=== PATIENT | male | born 1950 | race Caucasian/White ===

== ENCOUNTER → 2016-11-30 | Outpatient (CLI) | payer OTHER | LOC: BRMIMAGING 16:10 | PROVIDERS: ATTEND Physician Assistant Medical | DX: K76.9 Liver disease, unspecified (principal) | CPT/HCPCS: 76705-PO ==

== ENCOUNTER → 2016-12-02 | Outpatient (CLI) | payer OTHER ==
[~2016-12-02] MED LIST: GADOBUTROL 10 ML VIAL IVP ONE
[2016-12-02 10:25] LABS: CREATININE 0.8 mg/dL (0.7-1.3); GLOMERULAR FILTRATION RATE > 60
== END ==
LOC: FIMAGING 09:30
PROVIDERS: ATTEND Specialist
DX: N28.89 Other specified disorders of kidney and ureter (principal)
CPT/HCPCS: 74183; A9585

== ENCOUNTER 2017-08-26 06:18 | Emergency (ER) | payer OTHER ==
[2017-08-26] MEDS ORDERED: ACETAMINOPHEN 500 MG TAB ONE (06:48)
[2017-08-26] MEDS ORDERED: ACETAMINOPHEN 500 MG TAB PO ONE (06:48)
--- NOTE | 2017-08-26 06:49 | EDPHY ---
H & P Smoking Status: Never smoked <Cathy Vicente - Last Filed: 08/26/17 06:50> <Altagracia Steward - Last Filed: 08/26/17 07:34> Time Seen by Provider: 08/26/17 06:46 HPI/ROS: CC: cough, fever HPI: This 66-year-old male with no significant past medical history except depression and reflux presents to emergency department today with complaints of a cough and a fever that started approximately 4 - 5 days ago while he was on vacation in [place]. He states he was around a lot of sick people and thinks he has the flu. His cough is productive, he has a headache and left ear pain. He feels mildly short of breath. He denies chest pain, nausea, vomiting, sore throat, abdominal pain, or dysuria, diarrhea. He denies leg pain or swelling. REVIEW OF SYSTEMS: Constitutional: No chills. Eyes: No discharge. ENT: No sore throat. Respiratory: See HPI Cardiac: No chest pain, no palpitations. Gastrointestinal: No abdominal pain, no vomiting. Genitourinary: No hematuria. Musculoskeletal: No back pain. Skin: No rashes. Neurological: See HPI (Cathy Vicente) Past Medical/Surgical History: Past medical history includes depression and reflux Past surgical history includes multiple orthopedic surgeries Allergies to amoxicillin Medications include fluoxetine and Prilosec Primary care physician is Dr. Patel (Cathy Vicente) Social History: Denies tobacco, alcohol, marijuana (Cathy Vicente) Physical Exam: General Appearance: Alert, mod distress. Eyes: Pupils equal and round no pallor or injection. ENT, Mouth: Mucous membranes are moist. No posterior oropharyngeal erythema or exudates. Left TM obscured by hard cerumen. Respiratory: There are no retractions, +Rhonchi left Cardiovascular: Regular rate and rhythm. Gastrointestinal: Abdomen is soft and nontender, no masses, bowel sounds normal. Neurological: Awake and alert, sensory and motor exams grossly normal. Skin: Warm and dry, no rashes. Musculoskeletal: Neck is supple nontender. Extremities are symmetrical, full range of motion. Psychiatric: Patient is oriented X 3, there is no agitation. DIFFERENTIAL DIAGNOSIS: After history and physical exam differential diagnosis was considered for but not limited to: [URI, influenza, pneumonia] (Cathy Vicente) Constitutional: Initial Vital Signs Temperature (C) 38.6 C H 08/26/17 06:36 Heart Rate 92 08/26/17 06:36 Respiratory Rate 20 08/26/17 06:36 Blood Pressure 117/76 08/26/17 06:36 O2 Sat (%) 94 08/26/17 06:36 O2 Delivery Mode Room Air Allergies/Adverse Reactions: amoxicillin Allergy (Verified 08/26/17 06:34) Home Medications: Medication Instructions Recorded Azithromycin [Zithromax] 250 mg PO DAILY #4 tab 08/26/17 Oseltamivir Phosphate [Tamiflu 75 75 mg PO BID 5 Days #10 cap 08/26/17 mg (*)] Prilosec 08/26/17 Prozac 20 MG (*) 08/26/17 Medical Decision Making <Cathy Vicente - Last Filed: 08/26/17 06:50> - Diagnostics Imaging: I viewed and interpreted images myself <Altagracia Steward - Last Filed: 08/26/17 07:34> - Diagnostics Imaging Results: Xray: Chest x-ray was obtained. I viewed the images myself on the PACS system. My interpretation of the images is: Query early retrocardiac infiltrate. The radiology interpretation is: Pending. I discussed the results with the patient. (Altagracia Steward) ED Course/Re-evaluation: The patient was seen and examined and vital signs were reviewed. His oxygen saturation was slightly low at 92 to 94% but he was not tachycardic. He was febrile with a fever of 101.5F. He was swabbed for the flu and a chest x-ray was ordered. His flu the swab came back positive for influenza A and he was given Tamiflu 75 mg with a prescription for 75 mg twice a day for a total of 5 days. His left ear was irrigated. Reexamination of his left ear and review of his chest x-ray will be performed by Dr. Altagracia Steward. (Cathy Vicente) I assumed care of this patient from Dr. Vicente at 7:15 a.m.. He is currently getting his chest x-ray. Chest x-ray was interpreted by myself as showing possible early retrocardiac infiltrate. On re-examination the patient's lungs, they are clear to auscultation. The cerumen impaction from the left ear has been resolved and on re-examination the left tympanic membrane is erythematous, bulging. Patient will be started on azithromycin to cover for both otitis media and possible early pneumonia. I did discuss with the patient that he has known influenza and the most important therapies will be to get plenty of rest, drink plenty of fluid, and control his fever with Tylenol and ibuprofen. He was started on Tamiflu, although we did discuss the fact that he is now 4 days into his illness and the efficacy of the Tamiflu at this point is somewhat unclear. 1st dose of azithromycin was administered in the emergency department the patient was discharged with a prescription. He was discharged in good condition , I was comfortable with the plan. He looks well. (Altagracia Steward) - Data Points Laboratory Results: 08/26/17 06:30 Influenza A,B Rapid POSITIVE FOR FLU A H (NEGATIVE) Medications Given: Discontinued Medications Acetaminophen (Tylenol) 1,000 mg PO EDNOW ONE Stop: 08/26/17 06:49 Last Admin: 08/26/17 06:57 Dose: 1,000 mg Oseltamivir Phosphate (Tamiflu) 75 mg PO EDNOW ONE Stop: 08/26/17 06:56 Last Admin: 08/26/17 07:05 Dose: 75 mg Departure <Cathy Vicente - Last Filed: 08/26/17 06:50> <Altagracia Steward - Last Filed: 08/26/17 07:34> - Departure Disposition: Home, Routine, Self-Care Clinical Impression: Influenza A Otitis media Qualifiers: Otitis media type: unspecified Chronicity: acute Qualified Code(s): H66.90 - Otitis media, unspecified, unspecified ear Condition: Good Instructions: Influenza (ED) Additional Instructions: You have influenza A. Rest, drink plenty of fluids, take the Tamiflu as directed. Return to the ER if symptoms worsen as discussed. Referrals: Patient,NotPresent [Primary Care Provider] - As per Instructions Prescriptions: Azithromycin [Zithromax] 250 mg PO DAILY #4 tab Oseltamivir Phosphate [Tamiflu 75 mg (*)] 75 mg PO BID 5 Days #10 cap
[2017-08-26] MEDS ORDERED: HYDROGEN PEROXIDE 236 ML BOTTLE TP ONE (06:50)
[2017-08-26] MEDS ORDERED: OSELTAMIVIR PHOSPHATE 75 MG CAP PO ONE (06:55)
[2017-08-26] MEDS ORDERED: AZITHROMYCIN 250 MG TAB PO ONE (07:30)
[2017-08-26 07:53] VITALS: BP 114/64; PULSE 80; RESP 18; TEMP 100.2; O2SAT 93
== END 2017-08-26 07:46 | disposition home or self-care (01) ==
LOC: CED 06:18
DX: J10.1 Influenza due to other identified influenza virus with other respiratory manifestations (principal); H66.92 Otitis media, unspecified, left ear
CPT/HCPCS: 71046-PO; 87400-PO

== ENCOUNTER → 2017-12-12 | Outpatient (CLI) | payer OTHER | LOC: FIMAGING 09:41 | PROVIDERS: ATTEND Physician Assistant Medical | DX: K82.4 Cholesterolosis of gallbladder (principal); R93.421 Abnormal radiologic findings on diagnostic imaging of right kidney ==

== ENCOUNTER → 2017-12-27 | Outpatient (CLI) | payer OTHER | LOC: FIMAGING 07:26 | PROVIDERS: ATTEND Internal Medicine | DX: M54.2 Cervicalgia (principal) ==

== ENCOUNTER → 2018-11-06 | Outpatient (CLI) | payer OTHER | LOC: FIMAGING 09:20 | PROVIDERS: ATTEND Specialist | DX: D17.71 Benign lipomatous neoplasm of kidney (principal); N28.89 Other specified disorders of kidney and ureter ==